=== PATIENT | female | born 1980 | race American Indian/Alaskan Native ===

== ENCOUNTER 2020-12-08 12:09 | Emergency (ER) | payer MEDICAID ==
--- NOTE | 2020-12-08 12:28 | Emergency Department Report ---
Blank Doc - Documentation Documentation: This is a 40-year-old female that presents with vaginal bleeding and pelvic pa in. Patient stated she is currently about 10 weeks . Patient has history of blood transfusions. Patient is tachycardic at 140. 1- This initial assessment/diagnostic orders/clinical plan/ treatment(s) is/are subject to change based on pt's health status, clinical progression and re- assessment by fellow clinical providers in the ED. Further treatment and workup at subsequent clinical provers discretion. Patient/guardians urged not to elope from ED as their condition may be serious if not clinically assessed and managed. 2-EKG 3-labs/UA 4-OB ultrasound
[2020-12-08 13:11] LABS: Basophils % (Auto) 0.8 % (0.0-1.8); Eosinophils % (Auto) 0.3 % (0.0-4.3); Hematocrit 30.8 % (30.3-42.9); Hemoglobin 10.9 gm/dl (10.1-14.3); Lymphocytes # (Auto) 1.3 K/mm3 (1.2-5.4); Lymphocytes % (Auto) 24.3 % (13.4-35.0); Mean Corpuscular HGB Conc 35 % (30-34); Mean Corpuscular Volume 86 fl (79-97); Monocytes # (Auto) 0.4 K/mm3 (0.0-0.8); Monocytes % (Auto) 8.1 % (0.0-7.3); Platelet Count 346 K/mm3 (140-440); Red Cell Distribution Width 13.4 % (13.2-15.2)
[2020-12-08 13:14] LABS: INR 1.01 (0.87-1.13)
[2020-12-08 13:15] LABS: Partial Thromboplastin Time 29.7 Sec. (24.2-36.6)
[2020-12-08 13:26] LABS: Alanine Aminotransferase 7 units/L (7-56); BUN/Creatinine Ratio 13; Blood Urea Nitrogen 10 mg/dL (7-17); Calcium 8.8 mg/dL (8.4-10.2); Hemolysis Index 0
[2020-12-08] MEDS ORDERED: SODIUM CHLORIDE 0.9% 1000 ML 1,000 ML IV ONE (15:11)
[2020-12-08] MEDS ORDERED: SODIUM CHLORIDE 0.9% 500 ML 500 ML IV ONE (15:12)
--- NOTE | 2020-12-08 15:15 | Emergency Department Report ---
ED Female HPI - General Chief complaint: Vaginal Bleeding Stated complaint: MISCARRIAGE Time Seen by Provider: 12/08/20 12:20 Source: patient Mode of arrival: Wheelchair Limitations: No Limitations - History of Present Illness Initial comments: CC: "I'm losing blood." HPI: THis is a 40 yo female with history of hypertension anemia and previous blood transfusion who presents with abdominal cramping and vaginal bleeding. She is approximately 10 weeks . She diagnosed herself with via home test. Last night she had vaginal spotting. Today she had large blood clots. She is continue to bleed. She has continued to have vaginal bleeding. Patient has had work-up initiated in the waiting room. Labs reveal hemoglobin 10. Ultrasound results are pending. She had a syncopal episode witnessed by daughter and healthcare staff. She did not stop breathing. However she did become more lethargic. She appears pale. This is patient's 10th . She has 7 live children. She has had 2 previous miscarriages. She has not obtained care as of yet. Complaint: vaginal bleeding -: Gradual, Last night Severity: moderate Quality: cramping Consistency: constant Improves with: none Worsens with: none Are you Now?: Yes Associated Symptoms: vaginal bleeding - Related Data Previous Rx's Medication Instructions Recorded Last Taken Type Acetaminophen [Acetaminophen TAB] 650 mg PO Q6HR PRN #30 tablet 08/20/19 Unknown Rx Ibuprofen [Motrin 800 MG tab] 800 mg PO Q6H PRN #15 tablet 12/08/20 Unknown Rx Allergies Allergy/AdvReac Type Severity Reaction Status Date / Time No Known Allergies Allergy Unverified 08/20/19 16:39 ED Review of Systems ROS: Stated complaint: MISCARRIAGE Other details as noted in HPI Comment: All other systems reviewed and negative Constitutional: denies: chills, fever, malaise Respiratory: denies: cough, shortness of breath Cardiovascular: denies: chest pain Gastrointestinal: denies: abdominal pain, nausea, vomiting ED Past Medical Hx - Past Medical History Previous Medical History?: Yes Hx Hypertension: Yes - Social History Smoking Status: Never Smoker Substance Use Type: None - Medications Home Medications: Home Medications Medication Instructions Recorded Confirmed Last Taken Type Acetaminophen [Acetaminophen TAB] 650 mg PO Q6HR PRN #30 tablet 08/20/19 Unknown Rx Ibuprofen [Motrin 800 MG tab] 800 mg PO Q6H PRN #15 tablet 12/08/20 Unknown Rx ED Physical Exam - General Limitations: No Limitations General appearance: alert, in distress, other (Appears pale, lethargic, ) - Head Head exam: Present: atraumatic, normocephalic - Eye Eye exam: Present: normal appearance - ENT ENT exam: Present: mucous membranes moist, other (Pale lips) - Neck Neck exam: Present: normal inspection, full ROM - Respiratory Respiratory exam: Present: normal lung sounds bilaterally. Absent: respiratory distress, wheezes, rales, rhonchi - Cardiovascular Cardiovascular Exam: Present: normal rhythm, tachycardia, normal heart sounds. Absent: systolic murmur, diastolic murmur, rubs, gallop - GI/Abdominal GI/Abdominal exam: Present: soft, normal bowel sounds. Absent: distended, tenderness, guarding, rebound - External exam: Present: normal external exam Speculum exam: Present: vaginal bleeding, foreign body, tissue, other (Large amount of products of conception evacuated with ring forceps measuring approximately 8 ounces in total volume, no bleeding after evacuation, cervical os closed) - Extremities Exam Extremities exam: Present: normal inspection - Neurological Exam Neurological exam: Present: alert, oriented X3 - Psychiatric Psychiatric exam: Present: normal affect, normal mood - Skin Skin exam: Present: warm, dry, intact, normal color. Absent: rash ED Course Vital Signs 12/08/20 12/08/20 12/08/20 12:20 17:49 18:00 Temperature 98.4 F Pulse Rate 125 H 96 H 94 H Respiratory 20 15 18 Rate Blood Pressure 160/105 98/68 Blood Pressure [Right] O2 Sat by Pulse 100 93 Oximetry 12/08/20 12/08/20 18:14 18:16 Temperature Pulse Rate 84 Respiratory 18 18 Rate Blood Pressure Blood Pressure 98/68 [Right] O2 Sat by Pulse 100 100 Oximetry ED Medical Decision Making - Lab Data Result diagrams: 12/08/20 15:35 12/08/20 12:41 - Radiology Data Radiology results: report reviewed Ultrasound reveals possible single intrauterine gestational sac measuring 15 mm, - Medical Decision Making Patient presented with incomplete miscarriage: Patient does not require transfusion with stable H&H. Tachycardia resolved with IV fluid therapy. Bleeding resolved after products of conception were evacuated from the vagina. Os closed without recurrence of bleeding. Rh positive. BLood type B posivie. Clinical impression: Spontaneous miscarriage. Patient is discharged home. Critical care attestation.: If time is entered above; I have spent that time in minutes in the direct care of this critically ill patient, excluding procedure time. ED Disposition Clinical Impression: Incomplete miscarriage, Spontaneous miscarriage Disposition: TO HOME OR SELFCARE Is pt being admited?: No Does the pt Need Aspirin: No Condition: Stable Instructions: Miscarriage, [id number] Prescriptions: Ibuprofen [Motrin 800 MG tab] 800 mg PO Q6H PRN #15 tablet PRN Reason: Pain , Severe (7-10) Referrals: RIVERA GODFREY MD [Staff Physician] - as needed
[2020-12-08 15:55] LABS: Hemoglobin 9.5 gm/dl (10.1-14.3)
--- NOTE | 2020-12-08 18:04 | Ultrasound Report ---
ULTRASOUND OBSTETRIC INDICATION: Vaginal bleeding. Clinical gestational age of 11 weeks 3 days. TECHNIQUE: Transabdominal and Transvaginal. COMPARISON: OB ultrasound from 08/20/2019. FINDINGS: GESTATIONAL SAC: A possible single intrauterine gestational sac is seen measuring 15 mm, consistent w ith an estimated age of 6 weeks, 2 days. YOLK SAC: None seen. EMBRYO/FETUS: None seen. ADNEXA: No significant abnormality. FREE FLUID: None. ADDITIONAL FINDINGS: There is a simple cystic structure at the level of the cervix measuring 1.3 cm. IMPRESSION: Possible intrauterine gestational sac without identification of a pole or yolk sac. Please adis elate with the clinical findings. Signer Name: Bryan Hogan MD Signed: 12/08/2020 6:00 PM Workstation Name: [id number]
[2020-12-08 19:41] VITALS: BP 116/74
== END 2020-12-08 19:35 | disposition home or self-care (01) ==
LOC: ED 12:09
DX: O03.4 Incomplete spontaneous abortion without complication (principal); I10 Essential (primary) hypertension; Z3A.01 Less than 8 weeks gestation of pregnancy; Z79.1 Long term (current) use of non-steroidal anti-inflammatories (NSAID); Z79.899 Other long term (current) drug therapy
CPT/HCPCS: 36415; 76801; 76817; 80053; 84702; 85014; 85018; 85025; 85610; 85730; 86850; 86900; 86901; 86920; 96360; 99284; J7030